=== PATIENT | female | born 1990 | race Two or more races ===

== ENCOUNTER 2019-03-08 12:10 | Emergency (ER) | payer BC, MEDICAID ==
[~2019-03-08] VITALS: Ht 157.5 cm; Wt 66.0 kg
[~2019-03-08 12:10] MED LIST: FOLIC ACID
[2019-03-08 12:14] VITALS: BP 128/72; PULSE 82; RESP 20; Ht 157.5 cm; Wt 66.0 kg
--- NOTE | 2019-03-08 14:55 | ERD ---
ER Documentation Chief Complaint Chief Complaint facial tingling/numbness oral numbness, chest wall pain provoked by stress HPI 28-year-old female presents for chest pain, left face numbness and tingling sensation times 4 days. States that she had an episode of sweating as well as vomiting and diarrhea shortness of breath. Denies any dizziness. He also states that she had some hand and feet swelling. Denies fevers or chills. Denies abdominal pain, nausea, vomiting. She has had prior similar symptoms in the past about 2 years ago. No treatments tried at home. She does state that she has increased stress lately. ROS All systems reviewed and are negative except as per history of present illness. Medications Home Meds Reported Medications [Folic Acid] No Conflict Check 10/28/11 Allergies Allergies: Coded Allergies: No Known Allergy (Unverified , 10/28/11) PMhx/Soc History of Surgery: No Anesthesia Reaction: No Hx Neurological Disorder: No Hx Respiratory Disorders: No Hx Cardiac Disorders: No Hx Psychiatric Problems: No Hx Miscellaneous Medical Probl: No Hx Alcohol Use: Yes Hx Substance Use: No Hx Tobacco Use: No Smoking Status: Never smoker Physical Exam Vitals Vital Signs Date Temp Pulse Resp B/P (MAP) Pulse Ox O2 O2 Flow FiO2 Time Delivery Rate 03/08/19 97.9 82 20 128/72 99 12:14 (90) Physical Exam Const: No acute distress Head: Atraumatic Eyes: Normal Conjunctiva ENT: Normal External Ears, bilateral tympanic membrane intact without erythema or bulging noted, nose and Mouth examination normal, no tonsillar swelling or exudate noted Neck: Full range of motion. No meningismus. Resp: Clear to auscultation bilaterally, no wheezing, rales, rhonchi Cardio: Regular rate and rhythm, no murmurs, positive chest wall tenderness to palpation, bilateral radial and dorsalis pedis pulses intact Skin: No petechiae or rashes Ext: No cyanosis, or edema, 5 out of 5 muscle strength bilateral upper and lower extremities Neur: Awake and alert, bilateral upper and lower extremity sensation intact Psych: Normal Mood and Affect Procedures/MDM Medical Decision Making: Differential diagnosis includes but not limited to ACS, thyroid disorder, el ectrolyte disorder, anxiety Patient appeared well on physical exam. EKG: Rate/Rhythm: Normal Sinus Rhythm QRS, ST, T-waves: No changes consistent w/ acute ischemia Impression: No evidence of ischemia or arrhythmiaED course: Chest X-ray 1V Interpreted by me: Soft Tissue: No acute abnormalities Bones: No acute abnormalities Mediastinum/Cardiac Silhouette/Lungs: No acute abnormalities I did offer to do some blood work however the patient states that she will follow with her primary care physician. Patient advised to follow up with PCP in 1-2 days. Patient advised to return to ED for new or worsening symptoms. Patient stable on discharge from the ED. Disclaimer: Inadvertent spelling and grammatical errors are likely due to EHR/dictation software use and do not reflect on the overall quality of patient care. Also, please note that the electronic time recorded on this note does not necessarily reflect the actual time of the patient encounter. Departure Diagnosis: Primary Impression: Chest pain Chest pain type: unspecified Qualified Codes: R07.9 - Chest pain, unspecified Condition: Fair Patient Instructions: Chest Pain, Uncertain Cause Referrals: PENDING SALE TO [facility] YOU HAVE RECEIVED A MEDICAL SCREENING EXAM AND THE RESULTS INDICATE THAT YOU DO NOT HAVE A CONDITION THAT REQUIRES URGENT TREATMENT IN THE EMERGENCY DEPARTMENT. FURTHER EVALUATION AND TREATMENT OF YOUR CONDITION CAN WAIT UNTIL YOU ARE SEEN IN YOUR DOCTORS OFFICE WITHIN THE NEXT 1-2 DAYS. IT IS YOUR RESPONSIBILITY TO MAKE AN APPOINTMENT FOR FOLOW-UP CARE. IF YOU HAVE A PRIMARY DOCTOR --you should call your primary doctor and schedule an appointment IF YOU DO NOT HAVE A PRIMARY DOCTOR YOU CAN CALL OUR PHYSICIAN REFERRAL HOTLINE AT IF YOU CAN NOT AFFORD TO SEE A PHYSICIAN YOU CAN CHOSE FROM THE FOLLOWING PENDING SALE TO [facility] [id number] [facility]. [facility] [address] [facility] [facility] [address] [facility] [facility] [address] [facility]. [facility] [address] [facility]. [facility]. [address] Additional Instructions: Call your primary care doctor TOMORROW for an appointment during the next 1-2 days.See the doctor sooner or return here if your condition worsens before your appointment time. RADHA BELLO DO Mar 08, 2019 14:55
== END 2019-03-08 15:00 | disposition home or self-care (01) ==
LOC: FTE 12:10
DX: R07.9 Chest pain, unspecified (principal)
CPT/HCPCS: 71046; 93005